=== PATIENT | female | born 1995 | race Caucasian/White ===

== ENCOUNTER 2018-05-02 02:27 | Emergency (ER) | payer MEDICAID ==
[~2018-05-02] VITALS: Ht 160 cm; Wt 98.7 kg
[2018-05-02 02:43] VITALS: BP 131/76
== END 2018-05-02 08:16 | disposition left against medical advice (07) ==
LOC: ER 02:27
DX: R11.2 Nausea with vomiting, unspecified (principal); R19.7 Diarrhea, unspecified; Z53.21 Procedure and treatment not carried out due to patient leaving prior to being seen by health care provider